=== PATIENT | female | born 2000 | race Two or more races ===

== ENCOUNTER 2025-01-31 19:10 | Emergency (ER) | payer OTHER ==
[~2025-01-31] VITALS: Ht 182.9 cm; Wt 117.9 kg
[2025-01-31] MEDS ORDERED: IPRATROPIUM/ALBUTEROL SULFATE 3 ML AMPUL.NEB IH SCH (20:00)
[2025-01-31] MEDS ORDERED: GUAIFEN/DEXTROMETHORPHAN/PE 10 ML BLIST.PACK PO ONE (20:00)
[2025-01-31 20:51] LABS: BASO % 0.3 % (0.1-1.2); EOS # 0.24 (0.04-0.54); EOS % 3.7 % (0.7-7.0); LYMPH # 2.40 (1.18-3.74); LYMPH % 36.8 % (19.3-53.1); MEAN PLATELET VOLUME 10.30 fl (9.4-12.4); MONO # 0.62 (0.24-0.82); MONO % 9.5 % (4.7-12.5); NEUT # 3.23 (1.56-6.13); NEUT % 49.5 % (34.0-71.1); RED CELL DISTRIBUTION WIDTH 16.3 % (11.6-14.4)
[2025-01-31 21:18] LABS: COVID-19 AG NEGATIVE (NEGATIVE)
[2025-02-01] MEDS ORDERED: GILTUSS COUGH-118 M1 PO (00:11)
[2025-02-01] MEDS ORDERED: ACETAMINOPHEN500 M1 PO (00:11)
[2025-02-01] MEDS ORDERED: ZITHROMAX TRI-500 MG PO (00:11)
== END 2025-02-01 00:17 | disposition home or self-care (01) ==
LOC: ER 19:10
PROVIDERS: Preventive Medicine Public Health & General Preventive Medicine
DX: J06.9 Acute upper respiratory infection, unspecified (principal); Z20.822 Contact with and (suspected) exposure to COVID-19